=== PATIENT | female | born 1960 | race Hispanic/Latino ===

== ENCOUNTER 2016-08-04 14:22 | Emergency (ER) | payer MEDICAID ==
[2016-08-04 14:44] VITALS: BP 104/69; PULSE 59; RESP 20; TEMP 97.8; O2SAT 99
--- NOTE | 2016-08-04 15:32 | C.PDOC ---
History Of Present Illness 55 y/o female presents to ED with complaints of using slicer and cutting volar of left wrist [employer]. Patient denies numbness, weakness, no decrease ROM or any other complaints at this time. Tetanus Vaccine UTD Time Seen by Provider: 08/04/16 14:48 Chief Complaint (Nursing): Abnormal Skin Integrity History Per: Patient History/Exam Limitations: clinical condition Onset/Duration Of Symptoms: Days Location Of Injury: Left: Wrist Quality Of Symptoms: Painful. denies: Draining Past Medical History Reviewed: Historical Data, Nursing Documentation, Vital Signs Vital Signs: Last Vital Signs Temp 97.8 F 08/04/16 14:43 Pulse 59 L 08/04/16 14:43 Resp 20 08/04/16 14:43 BP 104/69 08/04/16 14:43 Pulse Ox 99 08/04/16 19:37 - Medical History PMH: Asthma Family History: States: No Known Family Hx - Social History Hx Alcohol Use: No Hx Substance Use: No Review Of Systems Except As Marked, All Systems Reviewed And Found Negative. Constitutional: Negative for: Fever, Chills Gastrointestinal: Negative for: Nausea, Vomiting, Diarrhea Skin: Negative for: Rash Neurological: Negative for: Weakness, Headache Physical Exam - Physical Exam Appears: Other (Mild Painful Distress) Skin: Normal Color, Warm Head: Atraumatic, Normacephalic Eye(s): bilateral: Normal Inspection, PERRL, EOMI Neck: Normal ROM Extremity: Capillary Refill (<2 seconds), Other (1.5 cm superficial C-shaped Laceration to volar aspect of left wrist , Full ROM ) Pulses: Left Radial: Normal Neurological/Psych: Oriented x3, Normal Motor, Normal Sensation ED Course And Treatment O2 Sat by Pulse Oximetry: 99 (RA) Pulse Ox Interpretation: Normal Medical Decision Making Medical Decision Makin yo F presents with a laceration to the L wrist which she sustained after using a slicer [employer]. Tetanus is UTD. Wound irrigated with water. Wound was inspected, no FB noted. Laceration was repaired using dermabond. Clean dressing applied. Advised to f/u with the clinic in 2 days without fail. Return to the ER at any time for any new or worsening symptoms. 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 - Scribe Statement The provider has reviewed the documentation as recorded by the Adwoaibsanchez Fair All medical record entries made by the Daksha were at my direction and personally dictated by me. I have reviewed the chart and agree that the record accurately reflects my personal performance of the history, physical exam, medical decision making, and the department course for this patient. I have also personally directed, reviewed, and agree with the discharge instructions and disposition.
== END 2016-08-04 15:50 | disposition home or self-care (01) ==
LOC: C.ER 14:22
DX: S61.512A Laceration without foreign body of left wrist, initial encounter (principal); W45.8XXA Other foreign body or object entering through skin, initial encounter